=== PATIENT | female | born 1940 | race Caucasian/White ===

== ENCOUNTER 2024-01-18 12:39 | Emergency (ER) | payer MEDICARE, SELFPAY ==
[2024-01-18 12:58] VITALS: BP 166/77; PULSE 87; RESP 18; TEMP 36.9; O2SAT 98; BMI 23.1
--- NOTE | 2024-01-18 13:28 | PC.NURSE ---
pt states injury during gardening 12 weeks ago. she has seen PCP and PT. has xray 10 weeks ago. pt describes tingling down bilateral legs and a burning sensation. states this is sciatica. this has progressively gotten worse until now she is having difficulty walking and sleeping and would like help to get to the orthopedic appt she has scheduled in 10 days. tried tylenol/ibuprofen, hydrocodone, prednisone pack, ice and heat
--- NOTE | 2024-01-18 13:54 | ED_ITS ---
HPI - Back Pain/Injury General Chief Complaint: Back Pain/Injury Stated Complaint: severe lumbar spine pain Time Seen by Provider: 01/18/24 13:54 Source: patient History of Present Illness HPI Narrative: Patient 83-year-old female with chronic ongoing back presenting today with worsening back pain. She is tried all medication she says without any sort of relief. She trying to get an MRI but states that she needs to be under anesthesia to have an MRI. I think was attempted here and she was not able to tolerate it. She has no bladder or bowel changes it is getting harder for her to walk only cause it is painful. They are trying to make arrangements for her to get to an orthopedic surgeon however that is a couple weeks out still. She has had 1 dose of hydrocodone in the past it made her nauseous and not feel well. She reports that she did a steroid burst some point and that did not help. She is tried gabapentin previously that did not help. She is tried lidocaine patches did not help. She reports that she is bilateral sciatic pain. Related Data Home Medications Medication Instructions Recorded Confirmed clobetasol-emollient 0.05 % 1 shelley topical ##0 09/17/16 12/10/23 topical cream Previous Rx's Medication Instructions Recorded triamcinolone acetonide 0.5 % 1 shelley topical BID ##15 04/25/17 topical ointment oxycodone 5 mg tablet 0 mg (0 x 5 mg) PO Q4HP PRN #10 05/02/17 tabs promethazine 12.5 mg rectal 12.5 mg [place] Q8HP PRN #5 supp 05/02/17 suppository prednisone 20 mg tablet 40 mg (2 x 20 mg) PO DAILY #10 tabs 01/03/24 gabapentin 300 mg capsule 300 mg PO BEDTIME #30 caps 01/18/24 oxycodone-acetaminophen 5 mg-325 1 tab PO Q6H PRN pain #10 tabs 01/18/24 mg tablet (Percocet) Allergies Allergy/AdvReac Type Severity Reaction Status Date / Time Sulfa (Sulfonamide Allergy Intermediate rash Verified 01/18/24 13:04 Antibiotics) [SULFA (SULFONAMIDE ANTIBIOTICS)] Patient History Surgical History (Updated 12/17/17 @ 06:11 by Conversion Provider) Status post adenoidectomy Family History (Updated 05/17/17 @ 00:00 by Conversion Provider) Father Heart disease Social History Smoking Status: Former smoker Smoking Status: Former smoker alcohol intake frequency: 0-2 drinks per day Substance Use Type: does not use Exam Initial Vital Signs Initial Vital Signs: Vital Signs Temperature 98.5 F 01/18/24 12:58 Pulse Rate 87 01/18/24 12:58 Respiratory Rate 18 01/18/24 12:58 Blood Pressure 166/77 H 01/18/24 12:58 Pulse Oximetry 98 01/18/24 12:58 Oxygen Delivery Method Room Air 01/18/24 12:58 GENERAL: Well-appearing, well-nourished and in no acute distress. HEENT: Head atraumatic,EOMI, CARDIOVASCULAR: Peripheral pulses intact RESPIRATORY: Respiratory distress ABDOMEN: Soft, nontender. Normoactive bowel sounds all 4 quadrants. No guarding or rebound. BACK: No vertebral tenderness mild bilateral paraspinal tenderness EXTREMITIES: Normal range of motion, no clubbing or edema. Neurovascularly intact NEUROLOGICAL: Alert and oriented x4. SKIN: Warm, dry, no laceration, no petechiae, no rashes or lesions. Course Orders Ordered: Discontinued Medications Ketorolac Tromethamine (Ketorolac 30 Mg/Ml Vial) 30 mg IM NOW ONE Stop: 01/18/24 14:14 Last Admin: 01/18/24 14:32 Dose: 30 mg Documented By: Vital Signs Vital signs: Vital Signs - 8 hr 01/18/24 12:58 01/18/24 15:06 Temperature 98.5 F Pulse Rate 87 82 Respiratory Rate 18 18 Blood Pressure 166/77 H 162/76 H Pulse Oximetry 98 99 Oxygen Delivery Method Room Air Room Air MDM - Back Pain/Injury MDM Narrative Medical decision making narrative: Patient 83-year-old male female having acute on chronic back pain. It is progressively getting worse over last couple of weeks. The are appointments in place for her. She does need an MRI however not emergent today no signs or symptoms of cauda equina. It also sounds like she is expecting to be sedated. I have said that we could give her something to make her drowsy but not c ompletely sedate her. We also talked about getting a CT scan today of her back and I could help give her some medications for up but she does not want that today. She is resistant or hesitant to try other medication because she says that she has tried them all is agreeable to Toradol. She does not want another prednisone burst will try some gabapentin it has been awhile since she has tried that and possibly Percocet. Discharge Plan Departure Patient Disposition: Home Clinical Impression: Acute exacerbation of chronic low back pain Instructions: DI for Back Pain With Sciatica Activity Restrictions/Additional Instructions: *You have been diagnosed with acute on chronic back pain *What to do: At this time increase activity as tolerated. I would not take Percocet and gabapentin together it would take them 1 at a time I would 1st try gabapentin. You may also break Percocet in half for the 1st time to see how you respond. *Continue to take medications as directed Gabapentin 300 mg at night before bed, this maybe titrated up if you speak with your doctor and have a good response with it Percocet 1 tablet every 6 hours if needed for severe pain Motrin 600 mg every 6 hours for [id number] pain *Follow up with your primary care provider in 2-3 days or call [phone] *Return to ER if you should have increasing leg weakness difficulty walking loss of urine or stool [or] any new, worsening or concerning symptoms CONTROLLED SUBSTANCE DISCHARGE (Narcotoic/benzodiazepine/Flexeril/Phenergan) 1. You have been prescribed narcotic medications, it does have acetaminophen/Tylenol/paracetamol in it, DO NOT TAKE MORE THAN 4,00mg in 24 hours of Tylenol. TRAMADOL DOES NOT CONTAIN TYLENOL 2. Please understand that we cannot provide further refills of narcotics, benzodiazepines or controlled substances through the ED and her pain management will need to be through your provider. 3. While on these medications you cannot drive or operate heavy machinery. 4. You cannot sign legal documents or perform any duties such as this. 5. As long as you're taking opiate pain medications he should also be taking a stool softener such as Colace, Dulcolax, MiraLAX or prune juice, to help avoid constipation. Prescriptions: New oxycodone-acetaminophen [Percocet] 5-325 mg tablet 1 tab PO Q6H PRN (Reason: pain) Qty: 10 0RF gabapentin 300 mg capsule 300 mg PO BEDTIME Qty: 30 0RF No Action clobetasol-emollient 0.05 % cream 1 shelley Topical Qty: 0 triamcinolone acetonide 0.5 % ointment 1 shelley Topical BID Qty: 15 0RF oxycodone 5 MG tablet 0 mg PO Q4HP PRNQty: 10 0RF promethazine 12.5 MG suppository 12.5 mg [place] Q8HP PRNQty: 5 0RF prednisone 20 mg tablet 40 mg PO DAILY Qty: 10 0RF Referrals: Tracie Rodriguez PA-C [Primary Care Provider] - Stand Alone Forms: Patient Portal/API
[2024-01-18] MEDS: KETOROLAC 30 MG/ML VIAL IM (14:32)
[2024-01-18 15:06] VITALS: BP 162/76; PULSE 82; RESP 18; O2SAT 99
== END 2024-01-18 15:07 | disposition home or self-care (01) ==
PROVIDERS: Emergency Provider Emergency Medicine; PCP Physician Assistant
DX: M54.50 Low back pain, unspecified (principal)
CPT/HCPCS: 96372; 99283; J1885

== ENCOUNTER → 2024-02-01 10:35 | Outpatient (CLI) | payer MEDICARE, SELFPAY ==
--- NOTE | 2024-02-01 10:40 | DI.MRI.S_ITS ---
PROCEDURE: MR LUMBAR SPINE WO CON INDICATIONS: severe worsening lumbar pain TECHNIQUE: Noncontrast sagittal T1 spin echo and T2 fast echo, sagittal STIR, and T2 fast spin echo through the lumbar spine. In cases with scoliosis, additional coronal T2 fast spin echo may be performed. COMPARISON: [facility] ([place]), CR, XR LUMBAR SPINE 2-3V, 12/10/2023, 9:59. FINDINGS: Image quality: Excellent. Alignment and Curvature: Leftward curvature. There is trace anterolisthesis of L2 on L3, L3 on L4. Bone Marrow: Marrow is of normal overall signal. No acute vertebral body compression fractures. Spinal Cord: Conus medullaris terminates at the L1 level. Visualized cord demonstrates normal signal and size. Paraspinous Soft Tissues: No paravertebral masses. Discs: Multilevel moderate disc desiccation, most severe at L5-S1. T12-L1: Minimal disc bulge without spinal stenosis or foraminal narrowing. L1-L2: Minimal disc bulge without spinal stenosis or foraminal narrowing. Mild facet and ligamentum flavum hypertrophy. L2-L3: Mild disc bulge with minimal spinal stenosis. Moderate left foraminal narrowing with facet and ligamentum flavum hypertrophy. L3-L4: Mild disc bulge including left foraminal/lateral component. Moderate spinal stenosis. Mild bilateral foraminal narrowing with facet and ligamentum flavum hypertrophy. L4-L5: Mild disc bulge with mild spinal stenosis. Minimal right foraminal narrowing with facet and ligamentum flavum hypertrophy. L5-S1: Mild disc bulge without spinal stenosis. Mild right foraminal narrowing with facet hypertrophy. IMPRESSION: Multilevel disc bulges. Spinal stenosis is most severe at L3-4 secondary to disc bulge with contributing effect of facet/ligamentum flavum arthropathy. Multilevel foraminal narrowing most severe at L2-3 secondary to facet/ligamentum flavum arthropathy. Dictated by: Paty Aguiar M.D. on 02/03/2024 at 14:41 Approved by: Paty Aguiar M.D. on 02/03/2024 at 14:46
== END ==
PROVIDERS: PCP Physician Assistant; Referring Provider Orthopaedic Surgery Orthopaedic Surgery of the Spine; Visit Provider Orthopaedic Surgery Orthopaedic Surgery of the Spine
DX: M51.17 Intervertebral disc disorders with radiculopathy, lumbosacral region (principal); M51.16 Intervertebral disc disorders with radiculopathy, lumbar region; M48.061 Spinal stenosis, lumbar region without neurogenic claudication; M48.07 Spinal stenosis, lumbosacral region; M54.50 Low back pain, unspecified; M41.9 Scoliosis, unspecified
CPT/HCPCS: 72148

== ENCOUNTER → 2024-02-26 09:56 | Outpatient (CLI) | payer MEDICARE, SELFPAY ==
[2024-02-26 21:09] LABS: Add Manual Diff / Slide Review NO; Basophils Absolute Auto 0 /uL (0-100); Basophils Percent Auto 0.5 % (0-2); Eosinophils Absolute Auto 0 /uL (0-450); Eosinophils Percent Auto 0.4 % (2-4); Hematocrit 39.1 % (36-46); Hemoglobin 13.4 g/dL (12.0-16.0); Lymphocytes Absolute Auto 800 /uL (1100-4500); Mean Corpuscular HGB Conc 34.3 % (30-36); Mean Corpuscular Volume 90.4 fL (80-100); Monocytes Absolute Auto 400 /uL (0-900); Monocytes Percent Auto 8.5 % (3-14); Neutrophils Absolute Auto 3800 /uL (1500-7000); Neutrophils Percent Auto 75.6 % (50-75); Platelet Count 242 X10^3/uL (150-400); Red Blood Cell Count 4.33 X10^6/uL (4.0-5.2); White Blood Cell Count 5.1 X10^3/uL (4.5-11.0)
[2024-02-26 21:22] LABS: Alanine Aminotransferase 16 IU/L (<35); Albumin 4.3 g/dL (3.5-5.0); Albumin Globulin Ratio 1.5 (1.0-2.8); Aspartate Aminotransferase 26 IU/L (14-36); Calcium 9.3 mg/dL (8.4-10.2); Carbon Dioxide 28 mmol/L (22-32); Chloride 98 mmol/L (98-107); Globulin 2.9 g/dL (1.7-4.1); Glucose 111 mg/dL (80-110); Potassium 4.4 mmol/L (3.4-5.1); Sodium 131 mmol/L (137-145); Total Protein 7.2 g/dL (6.3-8.2)
[2024-02-26 21:37] LABS: Alkaline Phosphatase 133 U/L (38-126); BUN Creatinine Ratio 23.5 (6-22); Bilirubin Total 0.5 mg/dL (0.2-1.3); Blood Urea Nitrogen 12 mg/dL (7-17); Estimated Glomerular Filt Rate > 60 mL/min (>60); HEMOLYSIS < 15 (0-50)
== END ==
PROVIDERS: PCP Physician Assistant; Visit Provider Physician Assistant
DX: Z01.810 Encounter for preprocedural cardiovascular examination (principal); Z79.899 Other long term (current) drug therapy
CPT/HCPCS: 80053; 85025

== ENCOUNTER 2024-03-09 10:40 | Inpatient (IN) | payer MEDICARE, SELFPAY ==
[2024-03-02 12:54] VITALS: BMI 23.1
[2024-03-09] VITALS (13 sets, daily range): BP systolic 108–167; BP diastolic 58–90; PULSE 80–99; RESP 10–19; TEMP 36.2–36.8; O2SAT 94–100; BMI 23.1
[2024-03-09] MEDS: LACTATED RINGERS 1,000 ML 42 ML IV ×2 (11:46→14:48)
--- NOTE | 2024-03-09 12:44 | PM.PREOP ---
Pre-operative Note Interval Note History & Physical reviewed/Exam performed by Physician: Yes Changes to H&P: No
--- NOTE | 2024-03-09 12:58 | SUR.OPER ---
Prone on spine table, head in foam head support, padded chest and pelvic supports, gel pad at knees, lower legs supported by pillows; nipples, genitalia and toes free of pressure, arms secured on foam padded arm boards at <90 degrees abduction. Tape over blanket at thigh secured to table.
[2024-03-09] MEDS: CEFAZOLIN 2 GM/100 ML PREMIX 100 ML IV ×2 (13:18→20:19)
[2024-03-09] MEDS: BUPIVACAINE 0.25% (PF) 60 ML, EPINEPHrine 0.15 MG INJ (13:58)
[2024-03-09] MEDS: BUPIVACAINE LIPOSOME 266 MG/20 ML VIAL INJ (14:44)
--- NOTE | 2024-03-09 15:30 | P.OP_ITS ---
Operative Date/Time/Diagnoses Date of procedure: 03/09/24 Time of procedure: 13:00 Pre-op diagnosis: 1. L3-4 spondylolisthesis 2. L3-4 spinal stenosis with radiculopathy Post-op diagnosis: same Procedure & Clinicians Procedure: 1. L3-4 Postero-lateral and posterior interbody fusion 2. L3-4 interbody cage placement. 3. L3-4 decompressive laminectomy with bilateral facetecomies 4. L3-4 Posterior non-segmental instrumentation 5. Colton of bone marrow from iliac crest 6. Utilization of microsurgical technique and operating microscope Same procedure as scheduled: Yes Indications: Patient has been having chronic back pain and worsening lumbar radiculopathy. Patient was found to have L3-4 spondylolisthesis with right-sided lateral recess stenosis correlating with her symptoms. Patient failed multiple conservative management with worsening pain weakness and numbness in her lower extremity. Patient has been having difficulty performing activity of daily living. After discussing risks benefits of treatment options, patient elected proceed with surgery. Surgeon: Fozia Cain Cardiology Fellow: Lorin Reyes Click Yes if Unassisted: No Anesthesia Type: General Operative Notes Prosthetic devices, grafts, tissues, transplants, or devices: Globus revolve screws, Rise cage Estimated Blood Loss (mL): 50 Blood products transfused: none Procedure in detail: Patient was seen in the preoperative area. Risks and benefits of the surgery was discussed with the patient. Informed consent was obtained from the patient and placed in the chart. Surgical site was marked. Patient was taken to the operative room. General anesthesia was administered. Prophylactic antibiotic was given to the patient less than 30 min before the incision was made. Patient was placed into a prone position on the Andrea table. Patient's back was then prepped and draped in the sterile fashion. Time-out was performed at this time. Using AP and lateral C-arm imaging the interval between L3-4 was identified and marked on patient's back. A 2 inch incision 2 in from midline was made on the right side first. The fascia was incised in line with skin incision. Globus MARS retractors was placed inside the incision and docked onto the L3 lamina. Using microsurgical technique and operating microscope, a L3 laminectomy and L3- 4 facetectomy was performed using a Kerrison rongeur. The laminectomy and facetectomy was performed in order to decompress patient's cauda equina as well as the nerve roots exiting at the L3-4 level. The disc space at L3-4 was identified. And a total diskectomy was performed at L3-4 level. The endplates were decorticated using a rasp and shaver. The total diskectomy and decort ication was performed at L3-4 level in order to to accomplish a L3-4 fusion. The local bone from the laminectomy and facetectomy was saved for local bone grafting. After the total diskectomy and decortication was completed, Viacel bone graft material was combined with local bone that was harvested earlier. At this time, a separate skin is incision was made over the iliac crest. A Jamshidi needle was inserted into the iliac crest through a separate skin incision. 5 cc of bone marrow aspiration was obtained through the separate skin incision using a Jamshidi needle from the iliac crest. The bone marrow aspiration was combined with local bone and the Viacel bone grafting material. The bone grafting material was placed into the L3-4 interbody space along with a expandable cage. The cage was expanded to its maximum height using the torque limiting screwdriver. At this time a mirror image incision was made on the left side. The fascia was incised in line with the skin incision. Globus MARS retractor was inserted and docked onto the L3-4 posterolateral gutter. Using the power drill, posterior- lateral decortication was performed at L3-4 level until bleeding cortical bone was identified. The remaining bone grafting material was placed into the L3-4 posterior lateral gutter he order to accomplish posterolateral fusion at the L3- 4 level. Using the double C-arm technique, pedicle screws were placed into the L3-4 pedicles bilaterally. This was done by placing the Jamshidi needle into the pedicles, then placing the guidewires over the Jamshidi needle, and finally placing the cannulated screws over the guidewires bilaterally. After the pedicle screws were placed, 2 titanium rods was locked into the heads of the pedicle screws using locking caps and torque limiting screwdriver. During the hardware insertion, it is noted that patient has significant osteoporotic bone. Her hardware inserted all had good purchase at the end of surgery. I will plan to place her into a chairback brace for added protection during the first 3 months of her post op period to be obtained on outpatient basis. After all the hardware was placed, and confirmed with AP and lateral C-arm imaging, the wound was then irrigated with sterile normal saline and packed with Ray-Ranjit gauze for 3 min to accomplish hemostasis. After the gauze was removed the deep fascia was closed with #1 Vicryl suture. The subcutaneous layer was closed with 2-0 Vicryl. The skin was closed with skin kostas. Patient tolerated the procedure well. There were no complications. The Operation could not have been safely performed without compromising the technical result or length of the procedure, without the assistance of a skilled certified surgical technician. The certified surgical technician was medically necessary for proper positioning, retraction and manipulation of instruments, proper exposure, surgical preparation, and manipulation of tissue. Neuromonitoring was utilized throughout the entire case. Patient's signal was stable throughout the entire procedure. Complications: none Post-operative Condition: stable Disposition: PACU Plan for aftercare: Admit to inpatient hospital
--- NOTE | 2024-03-09 15:37 | DI.RAD.S_ITS ---
PROCEDURE: XR LUMBAR SPINE 2-3V INDICATIONS: L3-4 TLIF TECHNIQUE: 2 fluoroscopic intraoperative spot films COMPARISON: [facility] ([place], XR LUMBAR SPINE 2-3V, 12/10/2023, 9:59. FINDINGS: Low resolution Spinal spot films show interbody fusion and posterior instrumentation in appropriate position IMPRESSION: Fluoroscopic guidance Approved by: Christopher Pearson M.D. on 03/09/2024 at 17:48
[2024-03-09] MEDS: ACETAMINOPHEN 325 MG TABLET 975 MG PO (15:55)
[2024-03-09] MEDS: TRAMADOL 50 MG TABLET PO (15:55)
[2024-03-09] MEDS: OXYCODONE IR 5 MG TABLET PO ×2 (16:48→20:19)
[2024-03-09] MEDS: LACTATED RINGERS 1,000 ML 125 ML IV ×2 (16:49→23:18)
[2024-03-09] MEDS: HYDROMORPHONE 0.5 MG INJ IV (17:34)
[2024-03-09] MEDS: SENNOSIDES 8.6 MG TABLET 17.2 MG PO (20:19)
[2024-03-09] MEDS: DOCUSATE 100 MG CAPSULE PO (20:19)
[2024-03-10] MEDS: CEFAZOLIN 2 GM/100 ML PREMIX 100 ML IV (05:13)
[2024-03-10 08:00] VITALS: BP 136/76; PULSE 87; RESP 20; TEMP 37.3; O2SAT 99
--- NOTE | 2024-03-10 08:05 | P.PN_ITS ---
Subjective Subjective Date Patient Seen: 03/10/24 Time Patient Seen: 08:05 Interval history: Pain [id number]. No fever or chills. No nausea or vomiting. Exam Vital Signs (past 8 hours): - 03/10/24 08:00 Temperature 99.1 F Pulse Rate 87 Respiratory Rate 20 Blood Pressure 136/76 Pulse Oximetry 99 Oxygen Flow Rate 0 Oxygen Delivery Method Room Air Oxygen Flow Rate 0 Narrative Exam Narrative: 83-year-old female resting comfortably in bedside chair in no apparent distress. Neurovascular status intact bilateral lower extremities. Const General: cooperative [facility] Surgical History Hx of bilateral cataract extraction (~2018) Hx of vein stripping (~1993) Hx of cholecystectomy (2017) Status post adenoidectomy Family History Father Heart disease Social History household members: none Smoking Status: Former smoker alcohol intake: current Assessment & Plan Post-op Postoperative Procedures: Procedures Operation Date: 03/09/24 12:45 Actual Procedure Side Surgeon p L3-4 TLIF Fozia Cain MD Postoperative day: 1 Postoperative status: doing well Postoperative plan: routine post-op care Postoperative plan narrative: Patient will mobilize with physical therapy this morning. Limit bending, twisting, lifting. Possible discharge later today Quality VTE Deep Vein Thrombosis/Pulmonary Embolism Present on Admission: No
[2024-03-10] MEDS: TRAMADOL 50 MG TABLET PO ×2 (08:17→14:32)
[2024-03-10] MEDS: DOCUSATE 100 MG CAPSULE PO (08:18)
--- NOTE | 2024-03-10 08:55 | OT.IP.EVAL ---
Current Diagnoses Spondylolisthesis, lumbar region (03/09/24) Spinal stenosis, lumbar region without neurogenic claudication (03/09/24) Surgery Performed Operation Date: 03/09/24 12:45 Actual Procedures p L3-4 TLIF - Fozia Cain MD Surgical History (Last Reviewed 03/10/24 @ 08:06 by Chano Clayton PA-C) Hx of bilateral cataract extraction (~2018) Hx of cholecystectomy (2017) Hx of vein stripping (~1993) Status post adenoidectomy Occupational Therapy Inpatient Evaluation/Re-Eval M1 PT/OT-IP Prior Functional Status Start: 03/10/24 09:42 Freq: NEEDED Status: Active Protocol: Document 03/10/24 09:42 [facility] (Rec: 03/10/24 10:08 [facility] [id number]) Medical Review Prior Functional Status Communication Independent Mobility and Gait Independent but her pain limited her distance. Activities of Daily Living and IADL's Pt able to do all ADL and IADL needs but had pain. Prior Functional Level (Other details) Pt to stay with her son and DIL's house. But considering showering at her house due to better set-up. Set-up based on her son's house. Social History Household Members none Living Arrangements House Number of Floors (Floors) Two Floors Number of Stairs To Enter/Railing? Pt states to stay on the main level. 2-3 steps with no rails . There is a guest house outside that has a walk in shower but no shower chair or place to sit. Pt's house has a shower with built in bench and HHSP. Pt states may just go home for showers. Pt at her house has 4 shallow steps to get into the house. Home Environment High Toilet,Walk in Shower Home Equipment Front Wheel Walker,Straight Cane,Aircraft Pilot Additional Social History Comment Pt to stay at her son and daughter in law's house. M2 OT-IP Current Condition Start: 03/10/24 09:42 Freq: Status: Active Protocol: Document 03/10/24 09:42 [facility] (Rec: 03/10/24 10:08 [facility] [id number]) Occupational Therapy Current Condition Current Condition Evaluation Date 03/10/24 Treatment Diagnosis S/P L3-4 TLIF Diagnosis Onset Date 03/09/24 Post Operative Precautions Lumbar Precautions Log Roll,No Twisting,Limit Bending,Lifting Restriction of 10 lbs,Gait Belt above Incisional Area M3 OT- IP Subjective and Pain Start: 03/10/24 09:42 Freq: Status: Active Protocol: Document 03/10/24 09:42 [facility] (Rec: 03/10/24 10:08 [facility] [id number]) OT- Subjective Occupational Therapy Visit Type Type Initial Evaluation Visit Start Time 08:55 Visit Stop Time 09:33 Occupational Therapy Visit Comments Patient Comments Pt agreed to get up and her son came in at the end of the session. Patient/Caregiver Goals TO go home. OT Pain Assessment Pain When Pain Assessed At Rest Pain Present Pain Present Pain Reported Location back Intensity 3 Scale Used Numeric (0 - 10) M4 OT- IP ADL's Start: 03/10/24 09:42 Freq: Status: Active Protocol: Document 03/10/24 09:42 [facility] (Rec: 03/10/24 10:08 [facility] [id number]) OT DBA-Fyxk-Yjonlxm General Evaluation Self-Feeding Ability Independent OT ADL-Grooming General Evaluation Grooming Ability Independent Areas Needing Assistance Retrieving/Set-up of Grooming Items Comments OT Grooming Comments Pt able to do while standing with FWW at the sink. OT ADL-Oral Care General Eval Oral Care Ability Independent Comments Oral Care Comments Pt able to do while standing with the FWW. OT ADL-Dressing General Eval Lower Body Dressing Ability Minimal Assistance Comments OT Dressing Comments Able to talk about use of roll hauler fro LB dressing needs. Pt able to comfortable cross her legs over for needs. Pt has slip on shoes. OT ADL-Toileting Comments OT Toileting Comments Pt not having to go at this time. Suggested best to stand and wipe after a bowel movement in order to best follow her back precautions. Wet one and use of pads so not having to hurry to the bathroom. Suggested to get a BSC so not having to do any steps at night and to have assist. OT ADL-Bathing Comments OT Bathing Comments Pt states to have assist. Went over care for dressing needs while showering. M5 OT- IP IADL's Start: 03/10/24 09:42 Freq: Status: Active Protocol: Document 03/10/24 09:42 [facility] (Rec: 03/10/24 10:08 [facility] [id number]) OT-Instrumental Activities of Daily Living Deficits IADL Deficits Identified Deficits Home Safety Awareness Awareness of Need for Assistance at Home Good Awareness Ability to Problem Solve Emergency Able to Problem Solve Situations Home Safety Comments Pt a little groggy and best for pt go get assist as needed at home for needs. Meal Preparation Meal Preparation Caregiver Provides Assist Insulation Cupola Charger Insulation Cupola Charger Caregiver Provides Assist M6 OT- IP Functional Cognition Start: 03/10/24 09:42 Freq: Status: Active Protocol: Document 03/10/24 09:42 [facility] (Rec: 03/10/24 10:08 [facility] [id number]) Cognitive Factors Limiting Selfcare Function Cognitive Ability Level of Alertness Alert Patient Orientation Name,Age Ability to Follow Commands Able to Follow One Step Commands Safety Awareness Decreased Ability to Apply Precautions Cognitive Comments Cognitive Assessment Comments Pt able to follow commands for ADL and mobility needs. Pt however needing safety cues for FWW use and tends to want to push up on the FWW to stand . OT- Vision and Hearing OT- Hearing Assessment OT- Hearing Assessment Hearing Impaired OT- Vision Assessment Visual Acuity WFL Vision Assessment Comments Pt is hard of hearing. M7 OT- IP Mobility and Balance Start: 03/10/24 09:42 Freq: Status: Active Protocol: Document 03/10/24 09:42 [facility] (Rec: 03/10/24 10:08 [facility] [id number]) OT- Bed Mobility Assessment Supine to Sit Supine to Sit Assist Standby Assistance Sit to Supine Sit to Supine Assist Standby Assistance OT-Transfer Assessment Sit to and From Stand Sit to and from Stand Standby Assistance Transfers Transfer Ability Standby Assistance Technique Transfer Destination Bed,Chair Transfer Technique Stand Step Pivot Devices Transfer Assistive Devices Gait Belt,Front Wheeled Walker Comments Mobility Comments SBA with mobility needs with the FWW. OT- Gait Assessment Gait Gait Assistance Required: Standby Assistance OT- Balance Assessment Sitting Balance and Reactions Static Sitting Balance Ability Normal Dynamic Sitting Balance Ability Normal Standing Balance and Reactions Static Standing Balance Ability Good Dynamic Standing Balance Ability Fair+ M9 OT- IP Assessment and Plan Start: 03/10/24 09:42 Freq: Status: Active Protocol: Document 03/10/24 09:42 [facility] (Rec: 03/10/24 10:08 [facility] [id number]) OT Summary Assessment and Plan Potential Rehabilitation Potential Excellent Analytic Complexity at Evaluation Low Summary OT Impairments Pain,Balance,Functional Mobility,Dressing,Toileting, Bathing,Toilet Transfers, Shower Transfers Progress Towards Goals Progressing Toward Goals Assessment Summary Pt low complexity and main barriers are pain, steps, and reminders for safety with FWW use. Pt's son insistent that Dr. Cain wants pt to be wearing a back brace but that the son is suppose to pick it up at the office. No orders or mention of back brace in the operative report seen prior to OT eval. Pt to go home with 24/7 available assist and would benefit from a BSC and shower chair at her son's home . Goals Dressing Goal Independent Toileting Goal Independent Bathing Goal Standby Assistance Toilet Transfer Goal Independent Shower Transfer Goal Independent Patient/Caregiver Education Goal Demonstrate Energy Conservation and Pacing Days to Meet Goals 3 Frequency of Treatment Frequency Of Treatment Once a Day Treatment Plan OT Treatment Plan ADL Training,Functional Mobility,Patient/Family Education,Discharge Planning Discharge Recommendations OT Discharge Recommendations Home with 24/7 Assist Available Home Equipment Needs BSC, shower chair Transportation Needs at Discharge Private Vehicle
--- NOTE | 2024-03-10 09:45 | PT.IIE ---
Current Diagnoses Spondylolisthesis, lumbar region (03/09/24) Spinal stenosis, lumbar region without neurogenic claudication (03/09/24) Surgery Performed Operation Date: 03/09/24 12:45 Actual Procedures p L3-4 TLIF - Fozia Cain MD Surgical History (Last Reviewed 03/10/24 @ 08:06 by Chano Clayton PA-C) Hx of bilateral cataract extraction (~2018) Hx of cholecystectomy (2016) Hx of vein stripping (~1993) Status post adenoidectomy Physical Therapy Inpatient Evaluation/Re-Eval M1 PT/OT-IP Prior Functional Status Start: 03/10/24 12:34 Freq: NEEDED Status: Active Protocol: Document 03/10/24 09:45 [facility] (Rec: 03/10/24 12:48 [facility] [id number]) Medical Review Prior Functional Status Medical History Reviewed Yes Communication able to make needs known Mobility and Gait pt stated that she was independent with all mobilities and ambulation without AD Activities of Daily Living and IADL's per OT note : Pt able to do all ADL and IADL needs but had pain. Social History Household Members none Living Arrangements House Number of Floors (Floors) One Floor Number of Stairs To Enter/Railing? lives at [facility]: home set up info is regarding pt's son's house 2 platform steps to enter Home Environment Standard Height Toilet,Tub/ Shower Home Equipment Front Wheel Walker,Straight Cane Additional Social History Comment pt's son initially stated that pt will stay at his house upon d/c and he and his spouse will assist pt but during PT session, son was not sure if pt will go home with them or will go to her own house and son or DIL will just stay with her. M2 PT-IP Current Condition Start: 03/10/24 12:34 Freq: NEEDED Status: Active Protocol: Document 03/10/24 09:45 [facility] (Rec: 03/10/24 12:48 [facility] [id number]) Physical Therapy Current Condition Current Condition Evaluation Date 03/10/24 Treatment Diagnosis s/p L3-4 TLIF; difficulty in walking Onset Date 03/09/24 M3 PT-IP Subjective Start: 03/10/24 12:34 Freq: NEEDED Status: Active Protocol: Document 03/10/24 09:45 [facility] (Rec: 03/10/24 12:48 [facility] [id number]) Subjective Physical Therapy Visit Type Type Initial Evaluation Visit Start Time 09:45 Visit Stop Time 10:30 Number of [employer] Visits 0 Physical Therapy Visit Comments Patient Comments agreeable to do PT Therapy Pain Assessment Pain When Pain Assessed At Rest Pain Present Pain Present Pain Reported Location back Intensity 4 Scale Used Numeric (0 - 10) Pain Management Techniques Apply Cold,Distraction, Modification of Treatment,Re- positioning,Timing of Activity with Medications M4 PT-IP Mobility and Gait Start: 03/10/24 12:34 Freq: NEEDED Status: Active Protocol: Document 03/10/24 09:45 [facility] (Rec: 03/10/24 12:48 [id number]) PT-Bed Mobility Assessment Rolling Type of Rolling Log Rolling Level of Assist Standby Assistance Supine to Sit Supine to Sit Standby Assistance Sit to Supine Sit to Supine Standby Assistance PT-Transfer Assessment Sit to and From Stand Sit to and from Stand Contact Guard Assistance,1 Person Assistance,Use of Upper Extremities Equipment Transfer Assistive Device Gait Belt,Front Wheeled Walker Orthotic/Prosthetic Devices or Brace: No Transfers Transfer Destination Bed,Chair Transfer Technique ambulated Transfer Ability Level of Assist Contact Guard Assistance,1 Person Assistance,Use of Upper Extremities Comments Mobility Comments pt sitting on the chair. pt's son in room. obtained PLOF and home set up. informed pt and son regarding DME needs. reviewed back precautions and log roll bed mobility. pt completed sit to stand CGA and ambulated using FWW ~ 15 ft CGA to EOB. pt completed sit< >supine SBA log roll. pt sat on EOB. caregiver training conducted. educated pt's son on how to use safety belt and how to assist pt. son was able to put safety belt on pt and assisted pt with sit to stand and ambulated pt to the chair using fWW CGA. stair climbing training. educated pt on how to go up/ down platform step using FWW. educated son on how to assist pt. pt ambulated from chair towards platform step using FWW CGA with son assisting. completed up/down platform step using FWW min A and cues. pt completed x 2 sets. pt ambulated back to room using FWW CGA and sat back on chair. positioned pt on the chair. call light and table placed within reach. educated pt and son on car tranfers. pt and son without further concerns. Gait Assessment Gait Gait Assistance Required: Contact Guard Assist Distance (Feet) 30 Able to Maintain Weight Bearing Status Yes During Gait Assistive Devices Assistive Device Gait Belt,Front Wheeled Walker Orthotic/Prosthetic Devices or Brace: No Gait Deviations General Gait Pattern Decreased Stride Length, Decreased Feet Clearance Factors Limiting Gait Function Factors Limiting Gait Function Decreased Activity Tolerance, Decreased Strength,Limited Range of Motion,Pain,Poor Balance,Poor Safety Awareness Stair Climbing Assessment Evaluation Level of Assist On Stairs Minimal Assistance Devices Stair Climbing Assistive Devices Front Wheel Walker Technique/Endurance Stair Climbing Direction Ascend and Descend Stair Climbing Technique Step to Step Number of Steps Climbed 1 Query Text: Stair Climbing Set # Repetitions (reps) 2 PT-Balance Assessment Sitting Balance and Reactions Static Sitting Balance Ability Normal Dynamic Sitting Balance Ability Good Standing Balance and Reactions Static Standing Balance Ability Fair Dynamic Standing Balance Ability Fair Device Used FWW M5 PT-IP Objective Assessments Start: 03/10/24 12:34 Freq: NEEDED Status: Active Protocol: Document 03/10/24 09:45 [facility] (Rec: 03/10/24 12:48 [facility] [id number]) Orientation Orientation/Cognition Level of Alertness Alert Orientation Name,Place,Situation Language Function Ability Hard of Hearing Safety Awareness Decreased Safety Awareness Memory Description No Deficits Noted Gross Range of Motion Lower Extremity ROM Assessment Within Functional Limits Strength Lower Extremity Strength Assessment Within Functional Limits Sensation Assessment Sensation Gross Sensation WNL Muscle Tone Muscle Tone WNL Yes M6 PT-IP Treatment Start: 03/10/24 12:34 Freq: NEEDED Status: Active Protocol: Document 03/10/24 09:45 [facility] (Rec: 03/10/24 12:48 AB [id number]) Physical Therapy Treatment Education Education Provided Precautions,Weight Bearing Status,Post-Op Packet,Safety M7 PT-IP Assessment and Plan Start: 03/10/24 12:34 Freq: NEEDED Status: Active Protocol: Document 03/10/24 09:45 [facility] (Rec: 03/10/24 12:48 AB [id number]) PT Summary Assessment and Plan Potential Rehabilitation Potential Fair Status of Condition at Evaluation Stable Summary Impairments Pain,ROM,Strength,Balance, Coordination,Sensation,Tone, Cognition,Bed Mobility, Transfers,Gait,Activity Tolerance Assessment Summary pt is an 83 y/o F s/p L3-4 TLIF POD 1. pt has back precautions. pt requiring SBA for bed mobility, CGA for transfers and ambulation using FWW, min A for stair climbing using FWW. caregiver training conducted and pt's son was able to assist pt safely. pt may go home when medically stable. Goals Bed Mobility Goal Independent Transfer Goal Independent,Front Wheeled Walker Gait Goal Independent,Front Wheel Walker Gait Distance 200 Other Goals up/down 2 platform steps using FWW SBA Days to Meet Goals 5 Frequency of Treatment Frequency Of Treatment Twice a Day Treatment Plan Physical Therapy Treatment Plan Bed Mobility Training,Transfer Training,Gait Training, Therapeutic Exercise,Balance Retraining,Post Op Education, Discharge Planning,Hot or Cold Pack,Neuromuscular Re-ed, Coordination Retraining,Manual Therapy Precautions Lumbar Precautions Log Roll,No Twisting,Limit Bending,Lifting Restriction of 10 lbs,Gait Belt above Incisional Area Recommendations To Nursing Amount of Assist Needed 1 Person Assist Discharge Recommendations PT Discharge Recommendations Home with Assistance Transportation Needs at Discharge Private Vehicle
--- NOTE | 2024-03-10 11:04 | CM.DANOTE ---
Initial DCP Assessment Visit Reviewed EMR and team rounds for status updates. Met with pt briefly at bedside to introduce self and role. Pt was found to be alert/oriented, and ambulating around the room w/OT. Pt appeared comfortable and was doing well postoperatively. Pt lives independently in her own home on [address], her son will be arriving later this morning to transport her back home after working with PT. Payor: Medicare Attending: Dr. Cain Pt is a 83 year-old F post-op day 1 from her lumber surgery. Pt had tried numerous conservative efforts such as PT, an injection, muscle relaxers, and gabapentin without lasting benefit for the last 12-weeks. Pt states that she has all the DME needed for home recovery needs, and has her son to assist. No further DCP needs indicated at this time. Discharge Planning/Care Management CM Discharge Assessment Start: 03/10/24 10:56 Freq: Status: Active Protocol: Document 03/10/24 10:56 [facility] (Rec: 03/10/24 11:03 [facility] [id number]) Discharge Planning Assessment Assigned Oral And Maxillofacial Surgery Resident XAVI Huynh Advance Directives? Yes Advance Directives on File No History Provided By Patient,Medical Record Has Patient been admitted in last 30 No days? Prior Living Arrangements House Household Members none Type of transporation used prior to Drives own vehicle admit Independent with ADL's Yes Is patient alert and oriented? Yes Caregiver for Another No Community Services used prior to Physical Therapy admission: DME Already Rented / Owned FWW / Walker Patient/Family Preference OP PT Therapy Discharge Plan Home Community Services Physical Therapy Transportation Arrangement Son Referrals Initiated None needed Whiteboard Updated in Patient Room with Yes name and ext. # of Oral And Maxillofacial Surgery Resident Review Status In Process Please Provide Date Initial DC 03/10/24 Assessment Was Performed Pre-Anesthesia Assessment Start: 03/02/24 12:53 Freq: Status: Active Protocol: Document 03/02/24 12:54 [facility] (Rec: 03/02/24 13:15 [facility] [id number]) Pre-Anesthesia Assessment Patient Information Reviewed Via Phone Assessment Assessment Completed With Patient Diagnostic Results BMP/CMP,CBC,EKG Comment Labs @ [facility] 02/26/24, outside EKG scanned Primary Care Provider Tracie Rodriguez Seen Specialist in Last 12 Months Yes Specialist Seen Emergency Primary Language Panamanian Human Resources Operations Coordinator Required No Height 162.56 cm Weight 61.235 kg Body Mass Index (BMI) 23.1 Hearing Ability Normal Visual Impairment No Limitations Visual Assist None Dentition Type Teeth, Natural Present Barriers to Learning None Hx Anesthesia Reactions No Hx Family Anesthesia Reaction No Hx Malignant Hyperthermia No Hx Blood Transfusions No Anesthesia Review Requested No Gas Scrubber Operator No alcohol intake current alcohol intake frequency a few times a week Smoking Status Former smoker how long ago did patient quit smoking Age 20 Substance Use Type does not use Pain Present Pain Reported Musculoskeletal Symptoms Back Pain,Radiating Pain into Limb,Tingling History of Falling (Recent or History of No ) Patient is completely paralyzed or No completely immobile Mental Status Oriented to own ability Is patient on oxygen? No Does patient have RUBIO/SOB No Hx Sleep Apnea No Currently Taking a Beta Thomas No Can You Climb a Flight of Stairs Without Yes SOB Hx Chest Pain No Hx SOB No Hx Syncope or Dizziness No Anti-Coagulant Therapy No Has a Sorter Laundry Articles No Cardiac Testing No Hx Pacemaker/ICD No Pacemaker Rep Required? 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 Yes Marital Status / Lives With none Current Living Arrangements House Number of Floors (Floors) One Floor Support System Child/Children Does the Patient Have Assistance After Yes: Will stay with son/ Surgery daughter in-law at [place] Patient Discharge Plan Description Other Comment Pt advised 1-2 night length of stay per surgeon. Lives on [address] Feels Safe in Current Environment Yes Been Physically Hurt or Threatened By a No Person in Current Environment Do you have thoughts of harming yourself None or others? Are you currently considering suicide? No Do you have a plan to hurt yourself or No Plan others? Do You Have Any Spiritual Beliefs That No May Affect Your HC Choices? Do You Have Any Cultural Practices That No May Affect Your HC Choices? Who Can We Speak to About Patient's Care Family, friends Identifying Code for Release of Patient Declines to issue Information Health Care Proxy/Next of Kin Satnam (son) Health Care Proxy Emergency Contact Name George (daughter in-law) Emergency Contact Advance Directives? Yes Advance Directives on File No Requested Patient Bring Advanced Yes Directives DOS Power of Research Instructor Yes Power of Research Instructor Name Satnam (son) Power of Research Instructor PAC Instructions Durable medical equipment, Medications to take/avoid, Nasal antibiotic,No ETOH/ petroleum product on skin DOS, NPO,Post-op transportation,Pre -surgical wash,Sensory aids, Sturdy shoes/comfortable clothes,Do not bring valuables and remove jewelry
--- NOTE | 2024-03-10 11:24 | PM.DS.1 ---
History of Present Illness History of Present Illness Date Patient Seen: 03/10/24 Time Patient Seen: 11:24 Chief complaint: Back pain Narrative: See progress note Discharge Providers Provider Date of admission: 03/09/24 10:40 Discharge Date: 03/10/24 Primary care physician: Tracie Rodriguez PA-C Consults: 03/09/24 16:32 Consult to Occupational Therapy Evaluate & Treat Comment: Physician Instructions: Evaluate and treat Consult to Physical Therapy Evaluate & Treat Comment: Physician Instructions: Evaluate and Treat Discharge provider: Chano Clayton PA-C Summary Hospital Course Discharge Diagnosis: 1. L3-4 spondylolisthesis 2. L3-4 spinal stenosis with radiculopathy Hospital Course: 1. L3-4 Postero-lateral and posterior interbody fusion 2. L3-4 interbody cage placement. 3. L3-4 decompressive laminectomy with bilateral facetecomies 4. L3-4 Posterior non-segmental instrumentation 5. [place] of bone marrow from iliac crest 6. Utilization of microsurgical technique and operating microscope Same procedure as scheduled: Yes Indications: Patient has been having chronic back pain and worsening lumbar radiculopathy. Patient was found to have L3-4 spondylolisthesis with right-sided lateral recess stenosis correlating with her symptoms. Patient failed multiple conservative management with worsening pain weakness and numbness in her lower extremity. Patient has been having difficulty performing activity of daily living. After discussing risks benefits of treatment options, patient elected proceed with surgery. Surgeon: Fozia Cain Automatic Oven Operator: Lorin Reyes Click Yes if Unassisted: No Anesthesia Type: General Operative Notes Prosthetic devices, grafts, tissues, transplants, or devices: Globus revolve screws, Rise cage Estimated Blood Loss (mL): 50 Blood products transfused: none Patient admitted for the above-mentioned procedure. Patient consented to the same. Patient underwent L3-L4 fusion March 09, 2024. Patient back in her room recovering well as in stable condition. Patient will be on multimodal pain management. She will mobilize with physical therapy this morning. Limit bending, twisting, lifting. She will follow up with outpatient orthopedic clinic for back brace. She will be discharged home today with her family. Exam Vital Signs (past 8 hours): - 03/10/24 08:00 Temperature 99.1 F Pulse Rate 87 Respiratory Rate 20 Blood Pressure 136/76 Pulse Oximetry 99 Oxygen Flow Rate 0 Oxygen Delivery Method Room Air Oxygen Flow Rate 0 Narrative Exam Narrative: See progress note PFSH Surgical History Hx of bilateral cataract extraction (~2018) Hx of vein stripping (~1993) Hx of cholecystectomy (2017) Status post adenoidectomy Family History Father Heart disease Social History household members: none Smoking Status: Former smoker alcohol intake: current Discharge Assessment & Plan Assessment and Plan Assessment: Patient progressing as expected Plan of Treatment: Multimodal pain management Limit bending, twisting, lifting Follow up with outpatient orthopedic clinic regarding back brace. Discharge home today in stable condition Discharge Plan Discharge Plan Patient Disposition: Home Discharge orders & Medications Prescriptions: New acetaminophen 325 mg Tablet 650 mg PO Q6H PRN (Reason: Fever/Mild Pain (1-3)) Qty: 60 0RF tramadol 50 mg Tablet 50 mg PO QID PRN (Reason: Pain, Moderate (4-6)) Qty: 40 0RF docusate sodium 100 mg Capsule 100 mg PO BID Qty: 20 0RF Follow up/Referrals: Fozia Cain MD [Physician] - 03/26/24 11:00 am (Follow up w/ Lorin Reyes PA-C, at [facility] office in [place].) Tracie Rodriguez PA-C [Primary Care Provider] - Diet/Activity/Treatments Diet: Diet as Tolerated Activity: No deep bending or twisting at the waist. No lifting more than 10 pounds. Cold/Heat Therapy: Heating pad to low back as needed for pain. Other treatments: Follow up with [facility] regarding back brace Skin/Wound/Dressing Care Report to your healthcare provider any signs of infection, such as:: chills, fever, night sweats, unusual drainage and unusual redness Dressing: May shower. Keep dressing as dry as possible. If dressing becomes wet or dirty, may remove and replace with clean, dry gauze. No bathing or otherwise soaking incision. Do not apply any creams, lotions, or ointments to incision. Visit Report/Discharge Packet Instructions: DI for Prescription Opioid Use, DI for Transforaminal Lumbar Interbody Fusion Stand Alone Forms: Patient Portal/API, Stroke Signs & Symptoms, Surgery Discharge Discharge Data Primary Care Provider: Tracie Rodriguez VTE Deep Vein Thrombosis/Pulmonary Embolism Present on Admission: No
[2024-03-10] MEDS: ACETAMINOPHEN 325 MG TABLET 650 MG PO (11:37)
[2024-03-10] MEDS: polyethylene glycoL 3350 17 GM POWD.PACK PO (14:32)
== END 2024-03-10 15:10 | disposition home or self-care (01) | DRG 455 ==
PROVIDERS: Admitting Provider Orthopaedic Surgery Orthopaedic Surgery of the Spine; PCP Physician Assistant; Referring Provider Orthopaedic Surgery Orthopaedic Surgery of the Spine; Visit Provider Orthopaedic Surgery Orthopaedic Surgery of the Spine
PROC: 0SG00AJ Fusion of Lumbar Vertebral Joint with Interbody Fusion Device, Posterior Approach, Anterior Column, Open Approach (ICD-10-PCS; principal; 2024-03-09 12:45)
DX: M43.16 Spondylolisthesis, lumbar region (principal); M48.061 Spinal stenosis, lumbar region without neurogenic claudication; M54.16 Radiculopathy, lumbar region; M81.0 Age-related osteoporosis without current pathological fracture
CPT/HCPCS: 72100; 76000; 97161; 97165; 97530; 97535; C1713; C1831; C9290; J0171; J0330; J0690; J1100; J1170; J2405; J2704